=== PATIENT | male | born 1950 | race Caucasian/White ===

== ENCOUNTER 2016-09-19 11:13 | Observation (INO) ==
--- NOTE | 2016-09-19 11:14 | Emergency Department Note ---
Disposition Clinical Impression: Community acquired pneumonia, Acute exacerbation of chronic obstructive airways disease, Hx of hypokalemia Disposition: Admitted As Inpatient Condition: Good Referrals: Vasu Talavera DO [Primary Care Provider] - Forms: ED Satisfaction Letter SOB HPI - General Chief Complaint: ED Shortness of Breath/Dyspnea Stated Complaint: DELIA Time Seen by Provider: 09/19/16 11:14 Source: patient, family Mode of arrival: private vehicle Limitations: no limitations Nursing Notes Reviewed: Yes Vital Signs Reviewed: Yes - History of Present Illness Patient was seen 3 days ago diagnosis acute community-acquired pneumonia and exacerbation of COPD. He was insistent on going home and states that it was not long after going home that he thought he probably should have stayed in the hospital. He has continued on prednisone, Levaquin and is home oxygen and aerosols. He continues to have shortness of breath and dyspnea on exertion. He has a persistent cough and wheezing but denies production of sputum. He denies fever or chills. He does report some generalized malaise and weakness. He denies any lower extremity swelling, immobilization or injury. He denies history of DVT or PE. He denies that he has been having any chest pains, diaphoresis, jaw, back or arm pain. The patient has already had his dose of Levaquin orally this morning. Pt Subjective Complaint: shortness of breath, cough Onset (ago): day(s) Context: recent illness Severity: moderate Consistency/Duration: gradually worsening Improves with: oxygen, bronchodilators Worsens with: exertion, coughing Known history of: COPD, other (Recent pneumonia) Associated symptoms: Reports: cough, wheezing. Denies: chest pain, pain with inspiration, fever, sputum production, orthopnea, lower extremity pain, polyuria , polydipsia, parasthesias, palpitations, hemoptysis, diaphoresis, nausea/ vomiting, syncope, abdominal pain, rash Treatment prior to arrival: oxygen, bronchodilator, other (Prednisone, Levaquin) Cough present: Yes Cough Description: Voluntary, Non-Productive, Hacking Cough Frequency: Intermittent - Related Data Home oxygen amount: 2 liters Home Medications Medication Instructions Recorded Confirmed Buprenorphine HCl/Naloxone HCl 1 each SL DAILY 05/24/16 09/19/16 [Suboxone 8 mg-2 mg Sl Film] Carvedilol [Coreg] 6.25 mg PO BIDWM 05/24/16 09/19/16 Digoxin [Lanoxin] 0.125 mg PO DAILY 05/24/16 09/19/16 Fluticasone/Salmeterol [Advair 1 each IH DAILY 05/24/16 09/19/16 250-50 Diskus] Furosemide [Lasix] 20 mg PO DAILY 05/24/16 09/19/16 Lisinopril [Zestril] 5 mg PO DAILY 05/24/16 09/19/16 Tiotropium [Spiriva] 18 mcg IH 0700 05/24/16 09/19/16 Previous Rx's Medication Instructions Recorded Levofloxacin [Levaquin] 500 mg PO DAILY #10 tablet 09/16/16 Potassium Chloride [Klor-Con 10] 10 meq PO DAILY #30 tablet.er 09/16/16 PredniSONE 40 mg PO DAILY #10 tablet 09/16/16 Allergies Allergy/AdvReac Type Severity Reaction Status Date / Time No Known Allergies Allergy Verified 09/16/16 04:28 All systems ED: reviewed and negative except as stated. Past Medical History - Past Medical History Attestation: Yes The following information was validated with the patient. Source: patient, old records reviewed, nursing notes reviewed Medical history: Reports: atrial fibrillation (Status post maze procedure), CHF (Nonischemic with 10-15% ejection fraction), COPD, GERD, hyperlipidemia, hypertension, TIA, other (Chronic low back pain, history of narcotic dependence on Suboxone, chronic elevated troponin/troponin leak). Denies: DVT, pulmonary embolus Surgical history: Reports: appendectomy, heart valve replacement (Mitral), pacemaker/AICD Psychiatric history: Reports: anxiety - Social History Smoking Status: Former smoker Smokeless Tobacco Status: Yes (chewing tobacco) Alcohol use: Reports: none Drug use: Reports: none Physical Exam - General Limitations: no limitations General appearance: alert, in no apparent distress - Head Head exam: atraumatic, normocephalic, normal inspection - Eye Eye exam: Present: normal appearance, PERRL, EOMI. Absent: scleral icterus, conjunctival injection - ENT ENT exam: normal exam, normal oropharynx, mucous membranes moist - Neck Neck exam: Present: normal inspection, full ROM, trachea midline - Chest Chest inspection: Present: normal inspection, symmetric chest wall rise - Respiratory Respiratory exam: Present: respiratory distress, wheezes, prolonged expiratory phase. Absent: accessory muscle use - Cardiovascular Cardiovascular exam: Present: regular rate, normal rhythm, normal heart sounds. Absent: tachycardia - Abdominal Exam Abdominal exam: Present: soft, Non-Tender, normal bowel sounds. Absent: tenderness, distention, guarding, rebound, rigidity - Extremities Exam Extremities exam: Present: normal inspection, full ROM, normal capillary refill. Absent: tenderness, pedal edema, calf tenderness - Expanded Lower Extremity Exam Neurovascular/Tendon exam: Present: normal capillary refill. Absent: motor deficit, sensory deficit, tendon deficit Gait: not tested/not observed - Back Exam Back exam: Present: normal inspection, full ROM. Absent: tenderness - Neurological Exam Neurological exam: Present: alert, oriented X3. Absent: motor sensory deficit - Psychiatric Psychiatric exam: Present: normal affect, normal mood - Skin Skin exam: Present: warm, dry, intact, normal color. Absent: cyanosis, diaphoresis, pallor Course Course Narrative: 1120: Patient has been started on a DuoNeb treatment and administered IV Solu- Medrol. Repeat EKG, chest x-ray or potassium and troponin have been ordered. As I am anticipating the need for hospitalization, blood cultures have been obtained. The patient has had his dose of oral Levaquin this morning and he has not been having emesis. This should have the same bioavailability as IV and therefore dosing has not been repeated. The patient has had a chronic elevation of his troponin and we will await the return of this level as well as chemistries prior to contacting physician for hospitalization. 1230: With return of all EKG, x-ray and lab, care is discussed with the patient , family and with Dr. Moore. Verbal orders are obtained for the patient's continued observation and respiratory protocol. He has indicated that he has had difficulty with constipation and he has been written for some bowel medications and enemas as needed on the floor. Vital Signs Temperature 97.8 F 09/19/16 11:19 Pulse Rate 64 09/19/16 11:19 Respiratory Rate 18 09/19/16 11:19 Blood Pressure 160/91 09/19/16 11:19 O2 Sat by Pulse Oximetry 92 L 09/19/16 11:19 Temperature 97.8 F 09/19/16 11:21 Pulse Rate 61 09/19/16 11:44 Respiratory Rate 19 09/19/16 11:44 Blood Pressure 162/87 09/19/16 11:44 O2 Sat by Pulse Oximetry 94 L 09/19/16 11:44 Oxygen Delivery Oxygen Delivery Nasal Cannula Shortness of Breath/Dyspnea - Differential Diagnosis Likely: acute exacerbation of chronic obstructive airways disease, pneumonia - Medical Records Medical records reviewed: Yes I reviewed the patient's medical records. The patient did have a borderline elevated troponin of 0.05 and his last visit. Given his desire for discharge, he was observed and the troponin was repeated and found to be 0.04. He was discharged on potassium replacement, Levaquin and prednisone. XR/XR chest 1V portable IMPRESSION: Left basilar atelectasis or pneumonia. D/ / Davey Ochoa MD / Davey Ochoa MD - Lab Data Lab results reviewed: Yes I reviewed the patient's lab results. Result diagrams: 09/19/16 11:30 09/19/16 11:30 Lab Results 09/19/16 09/19/16 09/19/16 Range/Units 11:30 11:30 11:30 WBC 9.6 (4.3-11.1) K/mcL RBC 5.38 (4.19-5.50) M/mcL Hgb 16.2 D (12.9-16.9) g/dL Hct 48.3 (37.5-50.1) % MCV 89.8 (83.0-100.0) fL MCH 30.1 (28.0-33.3) pg MCHC 33.5 (31.6-35.5) g/dL RDW 13.2 (11.5-14.5) % Plt Count 183 (140-400) K/mcL MPV 11.7 (9.4-12.4) fL Sodium 140 (136-145) mEq/L Potassium 3.0 L (3.5-4.5) mEq/L Chloride 84 L (98-109) mEq/L Carbon Dioxide 43 H* (19-29) mEq/L BUN 15 (8-26) mg/dL Creatinine 0.88 (0.72-1.25) mg/dL Est GFR ( Amer) > 60 (> 60) Est GFR (Non-Af Amer) > 60 (> 60) BUN/Creatinine Ratio 17 (6-26) Glucose 223 H (70-99) mg/dL Calculated Osmolality 298 (280-300) Calcium 9.7 (8.6-10.8) mg/dL Troponin I 0.03 (0-0.03) ng/mL - Radiology Data Radiology results reviewed: Yes I reviewed the patient's radiology results. Single view chest x-ray is performed. This does not demonstrate evidence for infiltrate, effusion, pneumothorax, foreign body or heart failure. There is a persistent area of atelectasis or infiltrate in the left base. The cardiac silhouette is enlarged. I do not see abnormality to the osseous structures of the chest. No significant changes in comparison with chest x-ray from 2016. This is on my interpretation. Impressions Chest X-Ray 09/19/16 11:17 IMPRESSION: Cardiomegaly with no acute process demonstrated D/ / Harsh Bradford MD / Harsh Bradford MD Interpreting Provider: Harsh Bradford MD - EKG Data EKG attestation: Yes I reviewed and interpreted this EKG. Interpretation: Reports: no acute changes (Ventricular paced rhythm with a rate of 60, axis of 171 and a QT/QTC of 495/495.)
[2016-09-19] MEDS ORDERED: METHYLPREDNISOLONE IVPB ONE (11:18)
[2016-09-19] MEDS ORDERED: SODIUM CHLORIDE 0.9% IVPB ONE (11:18)
[2016-09-19] MEDS ORDERED: Ipratropium/Albuterol Neb 3 ML IH ONE (11:18)
[2016-09-19] MEDS ORDERED: 0.9 % Sodium Chloride 1,000 ML IVC SCH ×2 (11:30→13:18)
[2016-09-19 11:48] LABS: Basophils % 0.3 %; Eosinophils # 0.1 K/mcL (0.0-0.6); Eosinophils % 0.8 %; Hematocrit 48.3 % (37.5-50.1); Hemoglobin 16.2 g/dL (12.9-16.9); Immature Granulocytes % 0.3 % (0-4); Lymphocytes % 21.3 %; Mean Corpuscular HGB Conc 33.5 g/dL (31.6-35.5); Mean Corpuscular Hemoglobin 30.1 pg (28.0-33.3); Mean Corpuscular Volume 89.8 fL (83.0-100.0); Mean Platelet Volume 11.7 fL (9.4-12.4); Monocytes # 0.8 K/mcL (0.0-1.3); Monocytes % 8.6 %; Neutrophils # 6.6 K/mcL (1.6-8.9); Platelet Count 183 K/mcL (140-400); Red Blood Count 5.38 M/mcL (4.19-5.50); Red Cell Distribution Width 13.2 % (11.5-14.5); Segmented Neutrophils % 68.7 %
[2016-09-19 12:02] LABS: BUN/Creatinine Ratio 17 (6-26); Blood Urea Nitrogen 15 mg/dL (8-26); Calcium 9.7 mg/dL (8.6-10.8); Chloride 84 mEq/L (98-109); Glucose 223 mg/dL (70-99); Osmolality,Calculated 298 (280-300); Sodium 140 mEq/L (136-145); eGFR For African Americans > 60 (> 60); eGFR For Non-African Americans > 60 (> 60)
[2016-09-19 12:04] LABS: Carbon Dioxide 43 mEq/L (19-29)
[2016-09-19 12:10] LABS: Platelet Estimate Normal (Normal); Reactive Lymphocytes Present (Not Present)
[2016-09-19] MEDS ORDERED: Ondansetron 4 MG/2 ML VIAL IVP PRN (13:18)
[2016-09-19] MEDS ORDERED: Acetaminophen 325 MG TABLET PO PRN (13:18)
[2016-09-19] MEDS ORDERED: Naloxone 0.4 MG/ML INJ IVP PRN (13:18)
[2016-09-19] MEDS ORDERED: MOM Conc 10 ML UD.LIQ PO PRN (13:18)
[2016-09-19] MEDS ORDERED: MethylPREDNISolone 40 MG/ML VIAL IVP SCH (16:00)
[2016-09-19] MEDS ORDERED: Ipratropium/Albuterol Neb 3 ML IH SCH (16:00)
--- NOTE | 2016-09-19 17:32 | Internal Med History&Physical ---
Date of Encounter: 09/19/16 Time of Encounter: 17:00 Assessment and Plan (1) Hypokalemia Current visit: No Status: Acute He will be given supplemental potassium. Labs will be ordered in a.m. (2) COPD (chronic obstructive pulmonary disease) Current visit: Yes Status: Chronic Continue oxygen with Advair and Spiriva. He has albuterol nebs ordered when necessary Qualifiers: COPD type: emphysema Emphysema type: unspecified Qualified Code(s): J43.9 - Emphysema, unspecified (3) Elevated transaminase level Current visit: Yes Status: Acute Liver function testing done 09/04/2014 showed significant elevation of AST and ALT. We will recheck in a.m. (4) Hypophosphatemia Current visit: Yes Status: Acute Phosphorus level was 2.0 on 09/07/2014. We will recheck in a.m. (5) Low TSH level Current visit: Yes Status: Acute TSH was low at 0.147 on 09/04/2014. We will recheck in a.m. (6) Nonischemic cardiomyopathy Current visit: Yes Status: Chronic Continue Coreg, Lanoxin, Lasix, and Zestril. (7) Hypertension Current visit: No Status: Chronic Continue Coreg, Lasix, and Zestril Qualifiers: Hypertension type: essential hypertension Qualified Code(s): I10 - Essential (primary) hypertension Internal Medicine - H&P: HPI Chief complaint: Dyspnea Admitted From: Home Plans for Post Hospital Care: Home History of present illness: Mr. Reddy is a 65 year old male who came to the hospital stating he had weakness and dyspnea. He had been seen in emergency room 09/16/2016 and was diagnosed with CAP. He was prescribed Levaquin and prednisone. He was given potassium for hypokalemia. He did not improve at home so came back to emergency room. He was again found to have hypokalemia. He was admitted to [facility] floor for ongoing care needs. His respiratory history significant for having smoked from age [age] up to 2 packs per day. He had PFTs several years ago and was diagnosed with COPD/ emphysema. He wears oxygen at home 15/02. He denies sleep apnea. Past Med Surg Social Fam HX - Past Medical History Medical history: atrial fibrillation, CHF, COPD, GERD, hyperlipidemia, hypertension, TIA, other Psychiatric history: anxiety - Past Surgical History Surgical History: appendectomy, heart valve replacement, pacemaker/AICD - Social History Smoking Status: Former smoker Smokeless Tobacco Status: Yes (chewing tobacco) Alcohol use: none Drug use: none Internal Medicine - H&P: Meds Buprenorphine HCl/Naloxone HCl [Suboxone 8 mg-2 mg Sl Film] 1 each SL DAILY [History] Carvedilol [Coreg] 6.25 mg PO BIDWM 05/24/16 [History] Digoxin [Lanoxin] 0.125 mg PO DAILY 05/24/16 [History] Fluticasone/Salmeterol [Advair 250-50 Diskus] 1 each IH DAILY 05/24/16 [History] Furosemide [Lasix] 20 mg PO DAILY 05/24/16 [History] Lisinopril [Zestril] 5 mg PO DAILY 05/24/16 [History] Tiotropium [Spiriva] 18 mcg IH 0700 05/24/16 [History] Levofloxacin [Levaquin] 500 mg PO DAILY #10 tablet 09/16/16 [Rx] Potassium Chloride [Klor-Con 10] 10 meq PO DAILY #30 tablet.er 09/16/16 [Rx] PredniSONE 40 mg PO DAILY #10 tablet 09/16/16 [Rx] Allergies No Known Allergies Allergy (Verified 09/16/16 04:28) All Systems PM: A 10-system review of systems was performed and is negative for pertinent findings except as documented above in the HPI. Review of systems: Gen.: He states his weight has been stable the last few months Cardiovascular: He has a history of hypertension and atrial fibrillation status post maze procedure, nonischemic cardiomyopathy with echocardiogram done 2015 showing LVEF of 35-40%. He is status post ICD/pacemaker placement. He reports the defibrillator was disabled due to inappropriate discharges but the pacemaker is still functional. He had mitral valve replacement 2005. He denies DVT pulmonary embolism or past [place]. He does not recall when his most recent heart catheter was done Respiratory: As per history of present illness GI: Denies disorders of his liver gallbladder or exocrine pancreas : Denies hematuria dysuria or kidney stones Neurologic: He denies large distribution strokes or seizures. Endocrine: Denies diabetes thyroid disease or hyperlipidemia Hematology/oncology: Denies blood disorders cancers or anemia Psychiatric: He denies anxiety depression or other mental health issues Musk skeletal: He denies arthritis gout or other bone joint or muscle disorders. - Constitutional Vitals: Temp Pulse Resp BP Pulse Ox 97.5 F L 56 14 172/84 91 L 09/19/16 15:47 09/19/16 15:47 09/19/16 15:55 09/19/16 15:47 09/19/16 15:55 Exam: General: He is a well-developed well-nourished male who appears in no severe distress at present time. HEENT: Head is atraumatic and normocephalic. Eyes: EOMI. There is no scleral icterus. Mouth: Mucosa is moist. Neck: Supple and nontender. There is no thyromegaly or adenopathy noted. Heart: Regular without murmurs gallops or ectopics. Lungs: No wheezes or crackles are heard. Abdomen: Soft and nontender. No masses or guarding noted. Extremities: There is no cyanosis edema or clubbing noted. Dorsalis pedis and posttibial pulses are trace palpable bilaterally. His feet are warm to touch. Neurologic: Mental status: He is talkative and a good historian. Cranial nerves : Smile is symmetric. Forehead wrinkles bilaterally. Tongue protrudes midline. EOMI. Motor: There is no pronator drift. Cerebellar: Finger to nose is intact bilaterally. Skin: Warm and dry. He has a well-healed midline sternal scar from previous [facility] Internal Med - H&P Results - Labs CBC & Chem 7: 09/19/16 11:30 09/19/16 11:30 - VTE Documentation of Mechanical Device: Graduated compression elastic hosiery
[2016-09-19] MEDS: Albuterol 2.5 MG/3 ML NEBULIZER IH PRN (22:16)
[2016-09-20 05:59] LABS: Basophils % 0.1 %; Hemoglobin 14.4 g/dL (12.9-16.9); Immature Granulocytes % 0.3 % (0-4); Lymphocytes # 1.2 K/mcL (0.6-4.6); Lymphocytes % 17.6 %; Mean Corpuscular HGB Conc 33.5 g/dL (31.6-35.5); Mean Corpuscular Hemoglobin 29.5 pg (28.0-33.3); Mean Corpuscular Volume 88.1 fL (83.0-100.0); Monocytes # 0.7 K/mcL (0.0-1.3); Monocytes % 9.7 %; Neutrophils # 5.1 K/mcL (1.6-8.9); Platelet Count 189 K/mcL (140-400); Red Blood Count 4.88 M/mcL (4.19-5.50); Red Cell Distribution Width 12.9 % (11.5-14.5); Segmented Neutrophils % 72.3 %
[2016-09-20] MEDS: Albuterol 2.5 MG/3 ML NEBULIZER IH PRN ×2 (06:13→21:28)
[2016-09-20 06:27] LABS: Alanine Aminotransferase 11 Units/L (0-55); Albumin 3.2 g/dL (3.5-5.0); Albumin/Globulin Ratio 0.9 (1.1-2.2); Alkaline Phosphatase 63 Units/L (38-126); Aspartate Amino Transferase 15 Units/L (5-34); BUN/Creatinine Ratio 18 (6-26); Bilirubin,Total 0.7 mg/dL (0.2-1.2); Blood Urea Nitrogen 17 mg/dL (8-26); Calcium 9.3 mg/dL (8.6-10.8); Carbon Dioxide 36 mEq/L (19-29); Chloride 88 mEq/L (98-109); Globulin 3.5 g/dL (2.4-3.5); Glucose 432 mg/dL (70-99); Magnesium 2.4 mg/dL (1.6-2.6); Osmolality,Calculated 306 (280-300); Phosphorous 3.5 mg/dL (2.3-4.7); Potassium 3.2 mEq/L (3.5-4.5); Sodium 138 mEq/L (136-145); Total Protein 6.7 g/dL (6.0-8.3); eGFR For African Americans > 60 (> 60); eGFR For Non-African Americans > 60 (> 60)
[2016-09-20 06:46] LABS: Thyroid Stimulating Hormone 0.031 mcIU/mL (0.350-4.840)
[2016-09-20] MEDS ORDERED: Preparation H Ointment 30 GM TUBE RC SCH (09:00)
[2016-09-20] MEDS ORDERED: [UNRECOGNIZED DRUG - OTHER] SL SCH (09:00)
[2016-09-20] MEDS ORDERED: BUPRENORPHINE SL SCH (09:30)
[2016-09-20] MEDS ORDERED: NALOXONE SL SCH (09:30)
[2016-09-20] MEDS: Furosemide 20 MG TABLET PO SCH (09:48)
[2016-09-20] MEDS: *HR* Digoxin 0.125 MG TABLET PO SCH (09:49)
[2016-09-20] MEDS: Levofloxacin 500 MG/100 ML 500 MG/100 ML BAG IVPB SCH (09:51)
--- NOTE | 2016-09-20 10:32 | Internal Med Progress Note ---
Date of Encounter: 09/20/16 Time of Encounter: 10:25 - Assessment and plan (1) Hypokalemia Current Visit: No Status: Acute Assessment and plan: September 20. Improved at 3.2. Continue supplemental potassium and recheck labs in a.m. (2) COPD (chronic obstructive pulmonary disease) Current Visit: Yes Status: Chronic Assessment and plan: September 20. Continue present management Qualifiers: COPD type: emphysema Emphysema type: unspecified Qualified Code(s): J43.9 - Emphysema, unspecified (3) Elevated transaminase level Current Visit: Yes Status: Resolved Assessment and plan: September 20. LFTs are now normal. (4) Hypophosphatemia Current Visit: Yes Status: Resolved Assessment and plan: September 20. Phosphorus level is now normal. (5) Low TSH level Current Visit: Yes Status: Acute Assessment and plan: September 20. TSH is further suppressed at 0.031. Free T4 is pending. Dr. Talavera can do further workup as an outpatient. (6) Nonischemic cardiomyopathy Current Visit: Yes Status: Chronic Assessment and plan: September 20. Continue present regimen (7) Hypertension Current Visit: No Status: Chronic Assessment and plan: September 20. Continue present regimen Qualifiers: Hypertension type: essential hypertension Qualified Code(s): I10 - Essential (primary) hypertension - Subjective Interval history: September 20. He has no new complaints. He states he still feels weak. Denies vomiting or diarrhea. - Constitutional Vitals: Temp Pulse Resp BP Pulse Ox 97.4 F L 60 20 159/78 93 L 09/20/16 07:20 09/20/16 07:20 09/20/16 07:20 09/20/16 07:20 09/20/16 07:27 Exam: He is resting comfortably in bed. His affect is bright and cheerful. I reviewed his medications and lab results. Internal Medicine: Result - Labs CBC & Chem 7: 09/20/16 05:50 09/20/16 05:50 Labs: Short CBC 09/20/16 Range/Units 05:50 WBC 7.0 (4.3-11.1) K/mcL Hgb 14.4 D (12.9-16.9) g/dL Hct 43.0 (37.5-50.1) % Plt Count 189 (140-400) K/mcL Neutrophils # 5.1 (1.6-8.9) K/mcL BMP 09/20/16 05:50 Sodium 138 Potassium 3.2 L Chloride 88 L Carbon Dioxide 36 H BUN 17 Creatinine 0.93 Glucose 432 H Calcium 9.3 Liver Function 09/20/16 Range/Units 05:50 Total Bilirubin 0.7 (0.2-1.2) mg/dL AST 15 (5-34) Units/L ALT 11 (0-55) Units/L Alkaline Phosphatase 63 (38-126) Units/L Albumin 3.2 L (3.5-5.0) g/dL - Impressions Impressions Chest CT 09/19/16 17:50 IMPRESSION: 1. Bronchiectasis is seen within the bilateral lower lobes with minimal atelectasis. Minimal bronchial wall thickening is seen which could be related to bronchitis. Motion artifact limits evaluation of the lung bases. 2. Moderate emphysematous changes. 3. Cardiomegaly with left atrial enlargement. D/ / Lora Barber MD / Lora Barber MD Interpreting Provider: Lora Barber MD - VTE Documentation of Mechanical Device: Graduated compression elastic hosiery Consult Discharge Plan - Plan Referrals: Vasu Talavera DO [Primary Care Provider] - 1 week
[2016-09-20] MEDS: Lisinopril 20 MG TABLET PO SCH (11:31)
[2016-09-21] MEDS: Albuterol 2.5 MG/3 ML NEBULIZER IH PRN ×2 (06:21→12:33)
[2016-09-21 06:58] VITALS: BP 146/91
--- NOTE | 2016-09-21 08:59 | Electrocardiograph Report ---
[address] [address] Test Date: 2016-09-19 Pat Name: Edwin Reddy Department: [id number] Room: [facility] Gender: M Gl[employer] Operator: : [id number] Requested By: Russell Palencia Order Number: [id number] Reading MD: Meet Morales MD Measurements Intervals [place] Rate: 60 P: ID: 0 QRS: 171 QRSD: 197 T: -11 QT: 495 QTc: 495 Interpretive Statements ELECTRON[employer]EN[employer]IC[employer] PACEMAKER Electronically Signed On 09-21-2016 8:57:27 EST by Meet Morales MD
[2016-09-21] MEDS: Levofloxacin 500 MG/100 ML 500 MG/100 ML BAG IVPB SCH (09:19)
[2016-09-21] MEDS: *HR* Digoxin 0.125 MG TABLET PO SCH (09:20)
[2016-09-21] MEDS: Furosemide 20 MG TABLET PO SCH (09:20)
[2016-09-21] MEDS: Lisinopril 20 MG TABLET PO SCH (09:20)
--- NOTE | 2016-09-21 10:29 | Discharge Summary ---
Date of Encounter: 09/21/16 Time of Encounter: 10:15 - Discharge Diagnosis (1) Hypokalemia Priority: Primary Status: Acute (2) COPD (chronic obstructive pulmonary disease) Priority: Secondary Status: Chronic Qualifiers: COPD type: emphysema Emphysema type: unspecified Qualified Code(s): J43.9 - Emphysema, unspecified (3) Low TSH level Priority: Secondary Status: Acute (4) Nonischemic cardiomyopathy Priority: Secondary Status: Chronic (5) Hypertension Priority: Secondary Status: Chronic Qualifiers: Hypertension type: essential hypertension Qualified Code(s): I10 - Essential (primary) hypertension - Discharge Medications Prescriptions: Carvedilol 12.5 mg PO BID #30 tab Lisinopril [Zestril] 20 mg PO DAILY #30 tablet Potassium Chloride [Klor-Con 10] 10 meq PO BID #60 tablet.er Home Medications: Buprenorphine HCl/Naloxone HCl [Suboxone 8 mg-2 mg Sl Film] 1 each SL DAILY [History] Digoxin [Lanoxin] 0.125 mg PO DAILY 05/24/16 [History] Fluticasone/Salmeterol [Advair 250-50 Diskus] 1 each IH DAILY 05/24/16 [History] Furosemide [Lasix] 20 mg PO DAILY 05/24/16 [History] Tiotropium [Spiriva] 18 mcg IH 0700 05/24/16 [History] Levofloxacin [Levaquin] 500 mg PO DAILY #10 tablet 09/16/16 [Rx] PredniSONE 40 mg PO DAILY #10 tablet 09/16/16 [Rx] Carvedilol 12.5 mg PO BID #30 tab 09/21/16 [Rx] Lisinopril [Zestril] 20 mg PO DAILY #30 tablet 09/21/16 [Rx] Potassium Chloride [Klor-Con 10] 10 meq PO BID #60 tablet.er 09/21/16 [Rx] Allergies/Adverse Reactions: Allergies No Known Allergies Allergy (Verified 09/16/16 04:28) Procedures/tests Complete & Pending: Procedures Performed prior 72 hours Category Date Time Status CT chest wo con [CT] Routine Cat Scan 09/19/16 17:50 Completed Date of admission: 09/19/16 13:05 Primary care physician: Vasu Talavera DO Consults: 02/25/17 13:46 Consult to Nutrition [CONS] Routine Comment: lost 2-12 pounds without trying Consulting Provider: NUTRITION Reason for Dietary Consult: MST Score - Patient Status Disposition: Home, Self-Care Condition: Good Overall status at discharge: patient is progressing back to baseline - Discharge Instructions Follow Up With: Vasu Talavera DO [Primary Care Provider] - 1 week - Diet and Activity Activity: resume usual activities as tolerated, wear oxygen at all times Diet: advance to your usual diet Hospital course: Mr. Reddy is a 65 year old male who came to the hospital stating he had weakness and dyspnea. He had been seen in emergency room 09/16/2016 and was diagnosed with CAP. He was prescribed Levaquin and prednisone. He was given potassium for hypokalemia. He did not improve at home so came back to emergency room. He was again found to have hypokalemia. He was admitted to [facility] floor for ongoing care needs. Initial orders were written by the emergency room physician. I saw him on September 19 performed the history and physical. Potassium supplement was increased to 20 mEq daily. This dose will be continued at discharge. Additional labs showed normal transaminase and phosphorus level. TSH returned suppressed at 0.031. Free T4 was minimally elevated at 1.49. I will let his PCP Dr. Talavera further workup or refer as necessary. His blood pressure remained above desirable range so lisinopril was increased during hospitalization to 20 mg daily. This dose well be continued at discharge. His Coreg will be increased at discharge. He can have monitoring done by Dr. Talavera for further medication adjustment. On September 21 he felt improved and stable for discharge home. He will continue his previously prescribed antibiotic and continued use of home oxygen. He will follow Dr. Talavera within 1 week. - Time Spent with Patient Total time spent providing and/or coordinating discharge services: - Constitutional Vitals: Temp Pulse Resp BP Pulse Ox 98.0 F 60 18 146/91 93 L 09/21/16 06:55 09/21/16 06:55 09/21/16 06:55 09/21/16 06:55 09/21/16 06:55 - VTE Documentation of Mechanical Device: Graduated compression elastic hosiery
== END 2016-09-21 12:20 | disposition home or self-care (01) ==
LOC: INPPIK 11:13 → EMEROOPIK 11:13 → INPPIK 13:20
PROVIDERS: ADMIT Internal Medicine; ATTEND Internal Medicine